=== PATIENT | female | born 1990 | race Hispanic/Latino ===

== ENCOUNTER 2024-02-15 00:09 | Emergency (ER) | payer BC, OTHER ==
--- OUTSIDE RECORDS SUMMARY | 2024-02-15 00:13 | XMS REPORT | Continuity of Care Document ---
Author Name Unknown Address [address] [facility] [address] [place] [address] [facility] thconnect Address [address] [facility]. [address] [place] [address] Care Team Providers Care Certified Adaptive Physical Educator Name Role Phone Pcp, Patient Does Not Have A Primary Care Physic mindy Steve Kendrick MD Attending Clinician [phone] EZ MASON Attending Clinician Unavailable EZ MASON Attending Clinician Unavailable Ez Mason DO Attending Clinician [phone] EZ MASON Admitting Clinician Unavailable Payers Payer Name Policy Type Policy Number Effective Date Expirati on Date Source Allergies, Adverse Reactions, Alerts Allergy Name Allergy Type Status Severity Reaction(s) Onset Date Inactive Date Treating Clinician Comments Source METHYLPR EDNISOLO NE SOD SUC(PF) DRUG Active Unknown-Cmnt 11-30 00:00: 00 [facility] Methylpr ednisolo ne Sod Suc(Pf) Propensi ty to adverse reaction s Active Unknown - See comments 11-30 00:00: 00 [facility] NO KNOWN ALLERGIE S Drug Class Active [facility] Social History Social Habit Start Date Stop Date Quantity Comments Source Sexual orientation [facility] Sex assigned at 1990 00:00:00 1990 00:00:00 [facility] Smoking Status Start Date Stop Date Source Tobacco smoking consumption unknown [facility] Medications Ordered Medication Name Filled Medication Name Start Date Stop Date Current Medication? Ordering Clinician Indication Dosage Frequency Signature (SIG) Comments Components Source HYDROcodone -acetaminop hen (NORCO) 10-325 mg tablet 1 tablet 12-01 06:00: 00 12-01 06:09 :00 No 1{tbl} 1 tablet, Oral, ONCE, 1 dose, On Sat12/02/23 at 0100, Routine [facility] naproxen sodium 550 mg tablet 12-01 00:00: 00 Yes [id number] 550mg Take 1 tablet by mouth in the morning and 1 tablet in the evening. Take with meals. [facility] methocarbam oL 500 mg tablet 12-01 00:00: 00 12-07 04:59 :00 No [id number] 500mg Take 1 tablet by mouth in the morning and 1 tablet at noon and 1 tablet in the evening. Do all this for 5 days. [facility] Vital Signs Vital Name Observation Time Observation Value Comments S angela Body height 2023-12-05 13:30:00 165.1 cm [facility] Body weight 2023-12-05 13:30:00 90.719 kg [facility] BMI 2023-12-05 13:30:00 33.28 kg/m2 [facility] Systolic blood pressure 2023-12-02 06:09:00 135 mm[Hg] [facility] Diastolic blood pressure 2023-12-02 06:09:00 79 mm[Hg] [facility] Heart rate 2023-12-02 06:09:00 62 /min [facility] Body temperature 2023-12-02 06:09:00 36.67 Flor [facility] Respiratory rate 2023-12-02 06:09:00 18 /min [facility] Oxygen saturation in Arterial blood by Pulse oximetry 2023-12-02 06:09:00 100 /min [facility] Body height 2023-12-02 02:39:00 165.1 cm [facility] Body weight 2023-12-02 02:39:00 95.255 kg [facility] BMI 2023-12-02 02:39:00 34.95 kg/m2 [facility] Encounters Start Date/Time End Date/Time Encounter Type Admission Type Attending [facility] Care Facility Care Department Encounter ID Source 2023-12-05 08:30:00 2023-12-05 09:57:49 Office Visit Steve Kendrick [facility] [id number] [facility] 2023-12-01 21:43:00 2023-12-02 01:27:00 Emergency X EZ MASON [facility] ERT [id number] [facility] 2023-12-01 21:43:00 2023-12-02 01:27:00 Emergency Ez Mason [facility] AT [facility] [id number] [facility]
[2024-02-15] MEDS ORDERED: LIDOCAINE 1% 20 ML MDV ONE (00:58)
[2024-02-15] MEDS ORDERED: TDAP (DIPHTH,PERTUSS(ACELL),TET VAC) 0.5 ML VIAL IMVAC ONE (00:59)
[2024-02-15] MEDS ORDERED: HYDROCODONE/APAP 5/325 MG TAB ONE (00:59)
[2024-02-15] MEDS ORDERED: ONDANSETRON 4 MG (ODT) TAB ONE (00:59)
[2024-02-15] MEDS ORDERED: IBUPROFEN 400 MG TAB ONE (00:59)
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
[2024-02-15 06:37] VITALS: O2SAT 100
[2024-02-15 06:41] VITALS: BP 156/88; TEMP 98.4
== END 2024-02-15 03:57 | disposition home or self-care (01) ==
LOC: ER 00:09
DX: S01.112A Laceration without foreign body of left eyelid and periocular area, initial encounter (principal); Y04.8XXA Assault by other bodily force, initial encounter
CPT/HCPCS: 70486; 76377; 96372; 99285; 12013; Q0162; J2003

== ENCOUNTER 2024-02-25 12:02 | Emergency (ER) | payer BC ==
--- OUTSIDE RECORDS SUMMARY | 2024-02-25 12:05 | XMS REPORT | Continuity of Care Document ---
Author Name Unknown Address [address] [facility] [address] [place] [address] [facility] thconnect Address [address] [facility] [place] [address] Care Team Providers Care Construction Scheduler Name Role Phone Pcp, Patient Does Not Have A Primary Care Physic mindy Steve Kendrick MD Attending Clinician [phone] EZ MASON Attending Clinician Unavailable EZ MASON Attending Clinician Unavailable Ez Mason DO Attending Clinician [phone] EZ MASON Admitting Clinician Unavailable Payers Payer Name Policy Type Policy Number Effective Date Expirati on Date Source Allergies, Adverse Reactions, Alerts Allergy Name Allergy Type Status Severity Reaction(s) Onset Date Inactive Date Treating Clinician Comments Source METHYLPR EDNISOLO NE SOD SUC(PF) DRUG Active Unknown-Cmnt 11-30 00:00: 00 [facility] Methylpr ednisolo ne Sod Suc(Pf) Propensi ty to adverse reaction s Active Unknown - See comments 11-30 00:00: 00 [facility] NO KNOWN ALLERGIE S Drug Class Active [facility] Social History Social Habit Start Date Stop Date Quantity Comments Source Sexual orientation U [facility] Sex assigned at 1990 00:00:00 1990 00:00:00 [facility] Smoking Status Start Date Stop Date Source Tobacco smoking consumption unknown [facility] Medications Ordered Medication Name Filled Medication Name Start Date Stop Date Current Medication? Ordering Clinician Indication Dosage Frequency Signature (SIG) Comments Components Source HYDROcodone -acetaminop hen (NORCO) 10-325 mg tablet 1 tablet 12-01 06:00: 00 12-01 06:09 :00 No 1{tbl} 1 tablet, Oral, ONCE, 1 dose, On Sat12/02/23 at 0100, Routine [facility] naproxen sodium 550 mg tablet 12-01 00:00: 00 Yes [id number] 550mg Take 1 tablet by mouth in the morning and 1 tablet in the evening. Take with meals. [facility] methocarbam oL 500 mg tablet 12-01 00:00: 00 12-07 04:59 :00 No [id number] 500mg Take 1 tablet by mouth in the morning and 1 tablet at noon and 1 tablet in the evening. Do all this for 5 days. [facility] Vital Signs Vital Name Observation Time Observation Value Comments S angela Body height 2023-12-05 13:30:00 165.1 cm [facility] Body weight 2023-12-05 13:30:00 90.719 kg [facility] BMI 2023-12-05 13:30:00 33.28 kg/m2 [facility] Systolic blood pressure 2023-12-02 06:09:00 135 mm[Hg] [facility] Diastolic blood pressure 2023-12-02 06:09:00 79 mm[Hg] [facility] Heart rate 2023-12-02 06:09:00 62 /min [facility] Body temperature 2023-12-02 06:09:00 36.67 Flor [facility] Respiratory rate 2023-12-02 06:09:00 18 /min [facility] Oxygen saturation in Arterial blood by Pulse oximetry 2023-12-02 06:09:00 100 /min [facility] Body height 2023-12-02 02:39:00 165.1 cm [facility] Body weight 2023-12-02 02:39:00 95.255 kg [facility] BMI 2023-12-02 02:39:00 34.95 kg/m2 [facility] Encounters Start Date/Time End Date/Time Encounter Type Admission Type Attending [facility] Care Facility Care Department Encounter ID Source 2023-12-05 08:30:00 2023-12-05 09:57:49 Office Visit Steve Kendrick [facility] [id number] [facility] 2023-12-01 21:43:00 2023-12-02 01:27:00 Emergency X EZ MASON [facility] ERT [id number] [facility] 2023-12-01 21:43:00 2023-12-02 01:27:00 Emergency Ez Mason [facility] [id number] [facility]
--- NOTE | 2024-02-25 12:27 | ER ---
Nurse's Notes [facility] Name: Rima Pierre Age: 33 yrs Sex: Female : 1990 Arrival Date: 02/25/2024 Time: 12:02 Bed DX3 Private MD: Diagnosis: Encounter for removal of sutures Presentation: 02/24 12:07 Chief complaint: Patient states: needs suture removal from left eyebrow. Sutures placed tm6 ten days ago. Coronavirus screen: Client denies travel out of the [place] in the last 14 days. Ebola Screen: Patient negative for fever greater than or equal to 101.5 degrees Fahrenheit, and additional compatible Ebola Virus Disease symptoms Patient denies exposure to infectious person. Patient denies travel to an Ebola-affected area in the 21 days before illness onset. No symptoms or risks identified at this time. Initial Sepsis Screen: Does the patient meet any 2 criteria? No. Patient's initial sepsis screen is negative. Does the patient have a suspected source of infection? No. Patient's initial sepsis screen is negative. Risk Assessment: Do you want to hurt yourself or someone else? Patient reports no desire to harm self or others. Onset of symptoms was February 25, 2024. 12:07 Method Of Arrival: Ambulatory tm6 12:07 Acuity: LIGIA 4 tm6 Triage Assessment: 12:09 General: Appears in no apparent distress. Behavior is calm, cooperative. Pain: Denies tm6 pain. EENT: No signs and/or symptoms were reported regarding the EENT system. Neuro: Level of Consciousness is awake, alert, obeys commands, Oriented to person, place, time, situation. Cardiovascular: Patient's skin is warm and dry. Respiratory: Airway is patent Respiratory effort is even, unlabored, Respiratory pattern is regular, symmetrical. GI: No signs and/or symptoms were reported involving the gastrointestinal system. Abdomen is round non-distended. : No signs and/or symptoms were reported regarding the genitourinary system. Derm: Reports need for suture removal. Musculoskeletal: No signs and/or symptoms reported regarding the musculoskeletal system. Historical: - Allergies: 12:09 Prednisone; tm6 - PMHx: 12:09 Anxiety; Hypertensive disorder; tm6 - PSHx: 12:09 None; tm6 - Immunization history:: Flu vaccine status is unknown. - Infectious Disease History:: Denies. - Social history:: Smoking status: Patient denies any tobacco usage or history of. - Family history:: not pertinent. - Hospitalizations: : No recent hospitalization is reported. Screenin:55 [facility] ED Fall Risk Assessment (Adult) History of falling in the last 3 months, tm6 including since admission No falls in past 3 months (0 pts) Confusion or Disorientation No (0 pts) Intoxicated or Sedated No (0 pts) Impaired Gait No (0 pts) Mobility Assist Device Used No (0 pt) Altered Elimination No (0 pt) Score/Fall Risk Level 0 - 2 = Low Risk Oriented to surroundings, Maintained a safe environment, Educated pt \T\ family on fall prevention, incl call for assistance when getting out of bed. Abuse screen: Denies threats or abuse. Denies injuries from another. Nutritional screening: No deficits noted. Tuberculosis screening: No symptoms or risk factors identified. Assessment: 12:55 Reassessment: see triage assessment. tm6 Vital Signs: 12:07 Temp 96.7(TE); tm6 12:07 BP 139 / 98; Pulse 84; Resp 17; Pulse Ox 98% on R/A; MAP 111 mmHg; Pain 0/10; tm6 12:56 BP 138 / 92; Pulse 80; Resp 17; Temp 96.7; Pulse Ox 99% on R/A; Pain 0/10; tm6 12:07 Pain Scale: Adult tm6 12:56 Pain Scale: Adult tm6 ED Course: 12:04 Patient arrived in ED. ra3 12:06 Roberto Wheat MD is Attending Physician. rn 12:09 Triage completed. tm6 12:09 Arm band placed on right wrist. tm6 12:55 Patient has correct armband on for positive identification. Provided Education on: tm6 follow up with pcp. 12:55 No provider procedures requiring assistance completed. Patient did not have IV access tm6 during this emergency room visit. Administered Medications: No medications were administered Medication: 12:55 VIS not applicable for this client. tm6 Outcome: 12:27 Discharge ordered by . rn 12:55 Discharged to home ambulatory, tm6 12:55 Condition: stable 12:55 Discharge instructions given to patient, Instructed on discharge instructions, follow up and referral plans. Demonstrated understanding of instructions, follow-up care, 12:57 Patient left the ED. tm6 Signatures: Roberto Whaet MD MD rn Wyatt Null RN RN tm6 Ludivina Wu 3
--- NOTE | 2024-02-25 12:27 | EDPHYS ---
Physician Documentation [facility] Name: Rima Pierre Age: 33 yrs Sex: Female : 1990 Arrival Date: 02/25/2024 Time: 12:02 Bed DX3 Private MD: ED Physician Roberto Wheat HPI: 02/24 12:18 This 33 yrs old Female presents to ER via Ambulatory with complaints of Suture rn Removal. 12:18 The patient has sutures on the face. Previous treatment: The patient was initially rn treated 11 day(s) ago. Sutures/danika progress: The patient has no c/o's. The wound is well-healing with no redness, swelling, discharge, or dehiscence reported. The patient has not experienced similar symptoms in the past. Historical: - Allergies: 12:09 Prednisone; tm6 - PMHx: 12:09 Anxiety; Hypertensive disorder; tm6 - PSHx: 12:09 None; tm6 - Immunization history:: Flu vaccine status is unknown. - Infectious Disease History:: Denies. - Social history:: Smoking status: Patient denies any tobacco usage or history of. - Family history:: not pertinent. - Hospitalizations: : No recent hospitalization is reported. ROS: 12:18 Constitutional: Negative for fever, chills, and weight loss, Skin: Negative for injury, rn rash, and discoloration, Exam: 12:18 Constitutional: This is a well developed, well nourished patient who is awake, alert, rn and in no acute distress. Head/Face: Normocephalic, well-healed sutures to the left forehead/brow, 11 fine Prolene sutures in an inverted Y shaped. No drainage or wound dehiscence Vital Signs: 12:07 Temp 96.7(TE); tm6 12:07 BP 139 / 98; Pulse 84; Resp 17; Pulse Ox 98% on R/A; MAP 111 mmHg; Pain 0/10; tm6 12:56 BP 138 / 92; Pulse 80; Resp 17; Temp 96.7; Pulse Ox 99% on R/A; Pain 0/10; tm6 12:07 Pain Scale: Adult tm6 12:56 Pain Scale: Adult tm6 MDM: 12:06 Medical Screening Exam initiated rn 12:26 Data reviewed: vital signs, nurses notes, and as a result, I will discharge patient. rn Counseling: I had a detailed discussion with the patient and/or guardian regarding the historical points, exam findings, and any diagnostic results supporting the discharge/admit diagnosis, the need for outpatient follow up, to return to the emergency department if symptoms worsen or persist or if there are any questions or concerns that arise at home. Special discussion: I discussed with the patient/guardian in detail that at this point there is no indication for admission to the hospital. It is understood, however, that if the symptoms persist or worsen the patient needs to return immediately for re-evaluation. Administered Medications: No medications were administered Disposition Summary: 02/25/24 12:27 Discharge Ordered Notes: Location: Home rn Problem: new rn Symptoms: have improved rn Condition: Stable rn Diagnosis - Encounter for removal of sutures rn Followup: rn - With: Private Physician - When: As needed - Reason: Recheck today's complaints, Re-evaluation by your physician Discharge Instructions: - Discharge Summary Sheet rn - Suture Removal, Care After rn - How to Minimize Scarring After Surgery rn Forms: - Medication Reconciliation Form rn - Antibiotic oncology rn - Prescription Opioid Use rn - Patient Portal Instructions rn - Leadership Thank You Letter rn Signatures: Roberto Wheat MD MD rn Masterson, Tawney, RN RN tm6
[2024-02-25 13:13] VITALS: TEMP 96.7
[2024-02-25 13:15] VITALS: BP 138/92; O2SAT 99
== END 2024-02-25 12:57 | disposition home or self-care (01) ==
LOC: ER 12:02
DX: Z48.02 Encounter for removal of sutures (principal)
CPT/HCPCS: 99283

== ENCOUNTER 2024-05-09 06:43 | Emergency (ER) | payer BC ==
--- OUTSIDE RECORDS SUMMARY | 2024-05-09 06:45 | XMS REPORT | Continuity of Care Document ---
Author Name Unknown Address [address] [facility] [address] [place] [address] [facility] thconnect Address [address] [facility] [place] [address] Care Team Providers Care Associate Professor Of English Name Role Phone Pcp, Patient Does Not Have A Primary Care Physic mindy Steve Kendrick MD Attending Clinician [phone] EZ MASON Attending Clinician Unavailable EZ MASON Attending Clinician Unavailable Ez Mason DO Attending Clinician [phone] EZ MASON Admitting Clinician Unavailable Payers Payer Name Policy Type Policy Number Effective Date Expirati on Date Source Allergies, Adverse Reactions, Alerts Allergy Name Allergy Type Status Severity Reaction(s) Onset Date Inactive Date Treating Clinician Comments Source METHYLPR EDNISOLO NE SOD SUC(PF) DRUG Active Unknown-Cmnt 11-30 00:00: 00 [facility] Methylpr ednisolo ne Sod Suc(Pf) Propensi ty to adverse reaction s Active Unknown - See comments 11-30 00:00: 00 [facility] NO KNOWN ALLERGIE S Drug Class Active [facility] Social History Social Habit Start Date Stop Date Quantity Comments Source Sexual orientation U [facility] Sex assigned at 1990 00:00:00 1990 00:00:00 [facility] Smoking Status Start Date Stop Date Source Tobacco smoking consumption unknown [facility] Medications Ordered Medication Name Filled Medication Name Start Date Stop Date Current Medication? Ordering Clinician Indication Dosage Frequency Signature (SIG) Comments Components Source HYDROcodone -acetaminop hen (NORCO) 10-325 mg tablet 1 tablet 12-01 06:00: 00 12-01 06:09 :00 No 1{tbl} 1 tablet, Oral, ONCE, 1 dose, On Sat12/02/23 at 0100, Routine [facility] naproxen sodium 550 mg tablet 12-01 00:00: 00 Yes [id number] 550mg Take 1 tablet by mouth in the morning and 1 tablet in the evening. Take with meals. [facility] methocarbam oL 500 mg tablet 12-01 00:00: 00 12-07 04:59 :00 No [id number] 500mg Take 1 tablet by mouth in the morning and 1 tablet at noon and 1 tablet in the evening. Do all this for 5 days. [facility] Vital Signs Vital Name Observation Time Observation Value Comments S angela Body height 2023-12-05 13:30:00 165.1 cm [facility] Body weight 2023-12-05 13:30:00 90.719 kg [facility] BMI 2023-12-05 13:30:00 33.28 kg/m2 [facility] Systolic blood pressure 2023-12-02 06:09:00 135 mm[Hg] [facility] Diastolic blood pressure 2023-12-02 06:09:00 79 mm[Hg] [facility] Heart rate 2023-12-02 06:09:00 62 /min [facility] Body temperature 2023-12-02 06:09:00 36.67 Flor [facility] Respiratory rate 2023-12-02 06:09:00 18 /min [facility] Oxygen saturation in Arterial blood by Pulse oximetry 2023-12-02 06:09:00 100 /min [facility] Body height 2023-12-02 02:39:00 165.1 cm [facility] Body weight 2023-12-02 02:39:00 95.255 kg [facility] BMI 2023-12-02 02:39:00 34.95 kg/m2 [facility] Encounters Start Date/Time End Date/Time Encounter Type Admission Type Attending Clinicians Care Facility Care Department Encounter ID Source 2023-12-05 08:30:00 2023-12-05 09:57:49 Office Visit Steve Kendrick [facility] [id number] [facility] 2023-12-01 21:43:00 2023-12-02 01:27:00 Emergency X EZ MASON [facility] ERT [id number] [facility] 2023-12-01 21:43:00 2023-12-02 01:27:00 Emergency Ez Mason [facility] [id number] [facility] Notes Date/Time Note Provider Source 2023-12-02 01:25:24 Pt given printed and verbal discharge instructions regarding acute right ankle pain, sprain of right ankle, encouraged hydration, Prescriptions provided to patient Discussed ibuprofen and to take with food to avoid GI distress. Pt verbalized understanding of instructions, pt awake alert oriented, resp reg unlabored, skin w/d, color appropriate for race, moves all ext well,pt encouraged to follow up with pcp Advised to seek medical attention for new/prolonged/worsening of symptoms No adverse reaction to meds given in ER noted upon discharge Awake, alert oriented, resp reg unlabored, skin w/d, pt leaving amb with steady gait, in no apparent distress, Pineda Lozano RN [facility] 2023-12-01 21:36:17 Arrived ambulatory, using a friends walker as aid C/o right ankle pain, tripped going down stairs last night, rolled ankle and fell. Has hardware in ankle from previous injury [facility]
[2024-05-09 07:14] LABS: Specific Gravity < 1.005 (1.005-1.030)
[2024-05-09 07:17] LABS: Specific Gravity < 1.005 (1.005-1.030); Sqamous Epithelial <5 /HPF (None Seen); Urine Bacteria None Seen /HPF (<20); Urine Bilirubin NEGATIVE (Negative); Urine Blood Negative (Negative); Urine Clarity Turbid (Clear); Urine Color Colorless (Yellow); Urine Culture Reflex Order NOT NEEDED; Urine Glucose NEGATIVE (Negative); Urine Ketones NEGATIVE (Negative); Urine Microscopic Reflex YN ORDER UMIC; Urine Nitrite NEGATIVE (Negative); Urine Protein NEGATIVE (Negative); Urine RBC None Seen /HPF (None Seen); Urine Urobilinogen Normal (Normal); Urine WBC None Seen /HPF (<5)
[2024-05-09 07:21] LABS: Barbiturates NEGATIVE (NEGATIVE); Benzodiazepines NEGATIVE (NEGATIVE); Cocaine NEGATIVE (NEGATIVE); METHAMPHETAM NEGATIVE (NEGATIVE); Methadone NEGATIVE (NEGATIVE); Opiates NEGATIVE (NEGATIVE); Phencyclidine NEGATIVE (NEGATIVE); THC Cannibis POSITIVE (NEGATIVE)
[2024-05-09 07:58] LABS: Absolute Lymphocytes (CBC) 3.3 K/uL (0.7-4.9); Absolute Monocytes 0.7 K/uL (0.1-1.3); Absolute Neutrophil 3.9 K/uL (1.8-8.0); Basophils % 0.2 % (0-1.3); Eosinophils % 0.6 % (0-4.4); Hemoglobin 12.2 g/dL (12.0-15.0); Lymphocytes % 41.5 % (15.3-44.8); MCH 31.9 pg (27.0-35.0); MPV 7.4 fL (7.6-11.3); Monocytes % 8.8 % (3.3-12.3); Neutrophils % 48.9 % (41.7-73.7); Nucleated Red Blood Cells % 0.1 % (0-0); Platelets 367 thou/uL (152-406); RBC Red Blood Cell Count 3.82 M/uL (3.86-4.86); Red Cell Distribution Width 14.1 % (12.1-15.2)
[2024-05-09 08:07] LABS: PT Prothrombin Time 11.2 SECONDS (10.0-13.0); PTT, Activated Partial Thromb 29.2 SECONDS (24.3-36.9); Protime INR 0.98
[2024-05-09 08:14] LABS: ALT/SGPT 37 U/L (13-56); AST/SGOT 25 U/L (15-37); Albumin 3.3 g/dL (3.4-5.0); Albumin/Globulin Ratio 0.9 (1.1-1.8); Alkaline Phosphatase 111 U/L (45-117); Anion Gap 9.2 mEq/L (5.0-15.0); BUN Blood Urea Nitrogen 11 mg/dL (7-18); Bicarbonate 27 mEq/L (21-32); Bilirubin Total 0.2 mg/dL (0.2-1.0); Globulin 3.6 g/dL (2.3-3.5); Glomerular Filtration Rate 123 ml/min (=/>90); Glucose Level 93 mg/dL (74-106); Potassium 3.2 mEq/L (3.5-5.1); Protein, Total 6.9 g/dL (6.4-8.2); Sodium Level 145 mEq/L (136-145)
[2024-05-09 08:15] LABS: Bilirubin Direct < 0.2 mg/dL (0-0.2)
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
[2024-05-09] MEDS ORDERED: POTASSIUM CL SA 10 MEQ TAB PO ONE (09:06)
[2024-05-09 09:36] VITALS: TEMP 97.7; O2SAT 98
[2024-05-09 09:38] VITALS: BP 107/79
--- NOTE | 2024-05-11 12:09 | EKG ---
Test Date: 2024-05-09 Test Time: 07:30:01 Flat Lock Operator: LAKESHIA MEASUREMENT RESULTS: Intervals: Rate: 82 ID: [id number] QRSD: 92 QT: 384 QTc: 448 [place]: P: 28 ID: [id number] QRS: 5 T: 4 INTERPRETIVE STATEMENTS: Normal sinus rhythm Voltage criteria for left ventricular hypertrophy Abnormal ECG Compared to ECG 05/02/2013 07:20:13 Left ventricular hypertrophy now present Atrial premature complex(es) no longer present Electronically Signed On 05-11-24 12:04:53 NURSE ADVISOR by Lucien Smith
== END 2024-05-09 09:32 ==
LOC: ER 06:43
DX: R45.851 Suicidal ideations (principal); F10.929 Alcohol use, unspecified with intoxication, unspecified
CPT/HCPCS: 36415; 80048; 80076; 80143; 80179; 80307; 81001; 81025; 82077; 85025; 85610; 85730; 93005; 99285